=== PATIENT | male | born 1940 | race Caucasian/White ===

== ENCOUNTER → 2024-10-03 | Outpatient (CLI) ==
[~2024-10-03] MED LIST: AMIO200T49 PO; ASPI81CH33 PO; CEPH500T PO; ISRA2.5C PO; PERC5TAB12 PO; ROSU10TA61 PO
== END ==
LOC: M SOG 08:28
PROVIDERS: ATTEND Orthopaedic Surgery Hand Surgery
DX: M79.645 Pain in left finger(s) (principal); Z53.9 Procedure and treatment not carried out, unspecified reason

== ENCOUNTER 2024-10-07 11:01 | Day surgery (SDC) | payer MEDICARE ==
[~2024-10-07] VITALS: Ht 180.3 cm; Wt 73.0 kg
[~2024-10-07 11:01] MED LIST changes: +GLYCOPYRROLATE INJ 0.2 MG/ML 2 ML VIAL As Ordered ONE; +KETOROLAC 30 MG/ML 1ML VIAL As Ordered ONE; +LIDOCAINE 2% 100MG/5ML SDV (FOR ANES.) As Ordered ONE; +MIDAZOLAM INJ 2MG/2ML VIAL As Ordered ONE; +ONDANSETRON 4MG 2ML VIAL As Ordered ONE; +fentaNYL 100 MCG/2 ML INJECTION As Ordered ONE; +propofoL 200 MG/20 ML VIAL As Ordered ONE
[2024-10-07] MEDS ORDERED: ACETAMINOPHEN 1000MG/100ML IV BAG As Ordered ONE (13:53)
[2024-10-07] MEDS ORDERED: ePHEDrine SULFATE 25 MG/5 ML(5MG/ML) SYRINGE As Ordered ONE (13:59)
[2024-10-07] MEDS: ceFAZolin SOD 2 GM IV ONCE IV ONE (14:20)
[2024-10-07] MEDS: ceFAZolin SODIUM 2 GM VIAL As Ordered ONE (14:28)
[2024-10-07] MEDS: BACITRACIN OINTMENT 30GM TUBE As Ordered ONE (14:45)
[2024-10-07] MEDS ORDERED: ONDANSETRON 4MG 2ML VIAL IV PRN (14:50)
[2024-10-07] MEDS ORDERED: oxyCODONE 5MG TAB PO PRN (14:50)
[2024-10-07] MEDS ORDERED: LR 1,000 ML IV SCH (14:50)
[2024-10-07] MEDS ORDERED: fentaNYL 100 MCG/2 ML INJECTION IV PRN (14:50)
[2024-10-07] MEDS ORDERED: HYDROMORPHONE HCL 0.5 MG/ 0.5 ML SYRINGE IV PRN (14:50)
[2024-10-07 15:59] VITALS: BP 164/80; TEMP 97.1; O2SAT 100
== END 2024-10-07 16:50 | disposition home or self-care (01) ==
LOC: M SDC 11:01
PROVIDERS: ATTEND Orthopaedic Surgery Hand Surgery
DX: S68.522A Partial traumatic transphalangeal amputation of left thumb, initial encounter (principal); W31.2XXA Contact with powered woodworking and forming machines, initial encounter; Y92.89 Other specified places as the place of occurrence of the external cause; Y93.9 Activity, unspecified; Y99.9 Unspecified external cause status; I48.91 Unspecified atrial fibrillation; I10 Essential (primary) hypertension; E78.5 Hyperlipidemia, unspecified; N18.31 Chronic kidney disease, stage 3a; I25.10 Atherosclerotic heart disease of native coronary artery without angina pectoris; Z98.61 Coronary angioplasty status; N40.0 Benign prostatic hyperplasia without lower urinary tract symptoms; Z79.82 Long term (current) use of aspirin; Z79.899 Other long term (current) drug therapy
CPT/HCPCS: 11044; 76000; 93005; J0131; J0665; J0690; J1100; J1596; J2250; J2405; J3010

== ENCOUNTER → 2024-10-15 | Outpatient (CLI) | payer MEDICARE ==
[~2024-10-15] MED LIST changes: -GLYCOPYRROLATE INJ 0.2 MG/ML 2 ML VIAL As Ordered ONE; -KETOROLAC 30 MG/ML 1ML VIAL As Ordered ONE; -LIDOCAINE 2% 100MG/5ML SDV (FOR ANES.) As Ordered ONE; -MIDAZOLAM INJ 2MG/2ML VIAL As Ordered ONE; -ONDANSETRON 4MG 2ML VIAL As Ordered ONE; -fentaNYL 100 MCG/2 ML INJECTION As Ordered ONE; -propofoL 200 MG/20 ML VIAL As Ordered ONE
== END ==
LOC: M SOG 07:15
PROVIDERS: ATTEND Physician Assistant
DX: Z89.012 Acquired absence of left thumb (principal)